=== PATIENT | female | born 1975 | race African-American/Black ===

== ENCOUNTER 2017-10-16 15:30 | Emergency (ER) | payer OTHER ==
[~2017-10-16] VITALS: Ht 170.2 cm; Wt 97.7 kg
[~2017-10-16 15:30] MED LIST: COZAAR50 MG PO; FLEXERIL10 MG PO; FLONASE16 G1 BOTH NARES; LAMISIL250 MG PO; NAPROSYN500 MG PO; PHENERGAN25 MG PR; PROMETHAZINE HC25 M1 PO; TYLENOL WITH C1 EACH PO; ULTRACET1 TABLET PO; ZYRTEC10 M3 PO
[2017-10-16 16:34] LABS: HEMATOCRIT 37.6 % (36.0-46.0); HEMOGLOBIN 12.6 G/DL (11.9-15.5); MCH 31.3 PG (29.0-34.0); MCHC 33.5 G/DL (30.0-36.0); MCV 93.3 FL (83-99); PLATELET COUNT 443 K/uL (156-360); RBC DIS.WIDTH-SD 44.6 % (39-53); RED BLOOD COUNT 4.03 M/uL (3.80-5.20); WHITE BLOOD COUNT 7.2 K/uL (4.1-10.2)
[2017-10-16 16:46] LABS: CHLORIDE 107 mEq/L (99-109); POTASSIUM 3.7 mEq/L (3.7-5.4); SODIUM 140 mEq/L (136-147)
[2017-10-16 16:48] LABS: GLUCOSE 88 mg/dL (70-99)
[2017-10-16 16:51] LABS: CREATININE 0.9 mg/dL (0.6-1.3); GFR ESTIMATE (CALCULATED) > 59 mL/min/
[2017-10-16 16:52] LABS: UREA NITROGEN (BUN) 14 mg/dL (9-23)
[2017-10-16 16:55] LABS: TROP-I INTERPRETATION NEGATIVE; TROPONIN-I < 0.01 ng/mL (0.0-0.30)
[2017-10-16] MEDS ORDERED: MOTRIN800 MG PO (17:36)
[2017-10-16 18:01] VITALS: BP 121/73
== END 2017-10-16 18:02 | disposition home or self-care (01) ==
LOC: EME 15:30
DX: R07.9 Chest pain, unspecified (principal); M25.512 Pain in left shoulder; I10 Essential (primary) hypertension; R94.31 Abnormal electrocardiogram [ECG] [EKG]
CPT/HCPCS: 71046; 80048; 84484; 85027; 93005; 99281; 99284